=== PATIENT | female | born 1965 | race Caucasian/White ===

== ENCOUNTER 2022-05-14 20:18 | Inpatient (IN) | payer OTHER ==
[~2022-05-14] VITALS: Ht 162.6 cm; Wt 96.0 kg
[2022-05-14] MEDS ORDERED: HALOPERIDOL 5 MG TABLET PO PRN (22:00)
[2022-05-14 22:54] VITALS: BP 141/80
[2022-05-14] MEDS: ZOLPIDEM TARTRATE 10 MG TABLET PO PRN (22:55)
[2022-05-15] MEDS ORDERED: PNEUMOCOCCAL VACCINE POLYVALENT 0.5 ML VIAL [PPSV23] IM. ONE (05:00)
[2022-05-15] MEDS ORDERED: INFLUENZA VIRUS VACCINE QVS 2022-23 (6MO+)/PF 60 MCG/0.5 ML SYRINGE IM. ONE (05:00)
[2022-05-15 07:32] LABS: BASOPHILS % (AUTO) 1.4 % (0.0-2.0); HEMATOCRIT 38.2 % (36-46); HEMOGLOBIN 13.2 g/dL (12.0-16.0); LYMPHOCYTES # (AUTO) 1.1 K/uL (1.0-4.8); LYMPHOCYTES % (AUTO) 47.2 % (22.0-44.0); MEAN CORPUSCULAR HEMOGLOBIN 34.4 pg (26.0-34.0); MEAN CORPUSCULAR HGB CONC 34.4 G/dL (31.0-37.0); MEAN CORPUSCULAR VOLUME 100 fL (80-100); MONOCYTES # (AUTO) 0.4 K/uL (0.1-1.0); MONOCYTES % (AUTO) 16.3 % (2.0-9.0); NEUTROPHILS # (AUTO) 0.8 K/uL (1.8-7.7); NEUTROPHILS % (AUTO) 32.1 % (40.0-70.0); PLATELET COUNT (AUTO) 105 K/uL (150-450); RED BLOOD CELL COUNT(AUTO) 3.83 MIL/uL (4.00-5.20); RED CELL DISTRIBUTION WIDTH 14.3 % (11.5-14.5)
[2022-05-15 07:40] LABS: HEMOGLOBIN A1C 4.8 % (3.8-5.6)
[2022-05-15 07:42] LABS: CHOL/HDL RATIO 2.8 (3.9-5.7); FREE T4 (FREE THYROXINE) 0.78 ng/dL (0.76-1.46); THYROID STIMULATING HORMONE 5.37 uIU/mL (0.36-3.74)
[2022-05-15 08:29] VITALS: BP 130/76
[2022-05-15] MEDS ORDERED: GuaiFENesin/D-METHORPHAN [SUGAR-FREE] 200-20MG/10 ML SYRUP UDCUP PO PRN (17:30)
[2022-05-15] MEDS ORDERED: ALBUTEROL SULFATE HFA 90 MCG/PUFF 8 GM INHALER IH PRN (17:30)
[2022-05-15] MEDS ORDERED: ACETAMINOPHEN 325 MG TABLET PO PRN (17:30)
[2022-05-15] MEDS ORDERED: NICOTINE 14 MG/24 HOUR PATCH TD PRN (17:30)
[2022-05-15] MEDS ORDERED: DOCUSATE SODIUM 100 MG CAPSULE PO PRN (17:30)
[2022-05-15] MEDS ORDERED: MAG HYDROX/AL HYDROX/SIMETH ES 30 ML SUSPENSION UDCUP PO PRN (17:30)
[2022-05-15] MEDS ORDERED: IBUPROFEN 400 MG TABLET PO PRN (17:30)
[2022-05-15] MEDS ORDERED: CloNIDine HCL 0.1 MG TABLET PO PRN (17:30)
[2022-05-15] MEDS ORDERED: ONDANSETRON HCL 4 MG TABLET PO PRN (17:30)
[2022-05-15] MEDS ORDERED: MAGNESIUM HYDROXIDE SUSPENSION 30 ML UDCUP PO PRN (17:30)
[2022-05-15] MEDS ORDERED: PETROLATUM,WHITE 28 GM JELLY TP PRN (17:30)
[2022-05-15] MEDS ORDERED: LOPERAMIDE HCL 2 MG CAPSULE PO PRN (17:30)
[2022-05-15] MEDS: LamoTRIgine 25 MG TABLET PO SCH (17:50)
[2022-05-15 20:06] VITALS: BP 140/81
[2022-05-15] MEDS: ZOLPIDEM TARTRATE 10 MG TABLET PO PRN (20:29)
[2022-05-15] MEDS: LITHIUM CARBONATE 300 MG CAPSULE PO SCH (20:29)
[2022-05-16] MEDS: RIFAXIMIN 550 MG TABLET PO SCH ×2 (08:56→17:13)
[2022-05-16] MEDS: LamoTRIgine 25 MG TABLET PO SCH ×2 (08:56→17:13)
[2022-05-16] MEDS: BuPROPion HCL XL 150 MG ER TABLET PO SCH (08:56)
[2022-05-16] MEDS: LITHIUM CARBONATE 300 MG CAPSULE PO SCH ×2 (08:56→20:50)
[2022-05-16] MEDS: LORazepam 2 MG TABLET PO PRN (17:13)
[2022-05-16 20:00] VITALS: BP 130/75
[2022-05-16] MEDS: ZOLPIDEM TARTRATE 10 MG TABLET PO PRN (20:50)
[2022-05-17 08:17] VITALS: BP 135/81
[2022-05-17] MEDS: LamoTRIgine 25 MG TABLET PO SCH ×2 (09:03→16:36)
[2022-05-17] MEDS: RIFAXIMIN 550 MG TABLET PO SCH ×2 (09:03→16:36)
[2022-05-17] MEDS: BuPROPion HCL XL 150 MG ER TABLET PO SCH (09:03)
[2022-05-17] MEDS: LITHIUM CARBONATE 300 MG CAPSULE PO SCH ×2 (09:03→20:18)
[2022-05-17] MEDS: LORazepam 2 MG TABLET PO PRN (09:03)
[2022-05-17] MEDS ORDERED: BUPR-49 PO (14:14)
[2022-05-17] MEDS ORDERED: RIFAX550 PO (14:14)
[2022-05-17] MEDS ORDERED: LITH300C3 PO (14:14)
[2022-05-17] MEDS ORDERED: LAMO25TA25 PO (14:14)
== END 2022-05-17 16:28 | disposition home or self-care (01) | DRG 885 ==
LOC: B3A 21:39
PROVIDERS: ADMIT Psychiatry & Neurology Child & Adolescent Psychiatry; ATTEND Psychiatry & Neurology Child & Adolescent Psychiatry
DX: F33.2 Major depressive disorder, recurrent severe without psychotic features (principal); R45.851 Suicidal ideations; D69.6 Thrombocytopenia, unspecified; Z20.822 Contact with and (suspected) exposure to COVID-19; F10.10 Alcohol abuse, uncomplicated; J45.909 Unspecified asthma, uncomplicated; D72.819 Decreased white blood cell count, unspecified; F19.10 Other psychoactive substance abuse, uncomplicated; F99 Mental disorder, not otherwise specified
CPT/HCPCS: 80061; 83036; 84439; 84443; 85025